=== PATIENT | male | born 1960 | race Caucasian/White ===

== ENCOUNTER → 2019-02-20 | Outpatient (CLI) | payer MEDICARE, MEDICAID ==
--- NOTE | 2019-02-20 17:33 | RAD ---
EXAM: XR Abdomen, 1 View CLINICAL HISTORY: SUPERFICIAL FOREIGN BODY TECHNIQUE: Frontal supine view of the abdomen/pelvis. COMPARISON: No relevant prior studies available. FINDINGS: Limitations: None. Gastrointestinal tract: Unremarkable. No dilation. Bones/joints: Unremarkable. Soft tissues: No radiopaque foreign body noted. IMPRESSION: No radiopaque foreign body noted. Electronically signed by: Alexandria Toscano MD 02/20/2019 5:32 PM CDT
== END ==
LOC: RAD 17:03
PROVIDERS: ATTEND Nurse Practitioner Family
DX: S30.851A Superficial foreign body of abdominal wall, initial encounter (principal)

== ENCOUNTER 2019-06-10 11:00 | Emergency (ER) | payer MEDICARE, MEDICAID ==
[2019-06-10 11:17] VITALS: O2SAT 98
--- NOTE | 2019-06-10 11:20 | ED.PDOC ---
History of Present Illness - General Chief Complaint: Lower Extremity Injury Stated Complaint: left hip and leg pain Time Seen by Provider: 06/10/19 11:09 Source: patient Exam Limitations: no limitations Additional Information: 58yo M with history of chronic back pain now with LLE pain x 3 days. Reports worse after moved heavy mattress, and started only when moving. Denies back pain, fever, saddle anesthesia, numbness/tingling, inability to ambulate, or other symptoms. - History of Present Illness Allergies/Adverse Reactions: Allergies NO KNOWN ALLERGY Allergy (Unverified 10/29/14 13:02) Home Medications: Ambulatory Orders Metformin HCl [Metformin Hydrochloride] 1,000 mg PO BID 10/29/14 Losartan Potassium & Hydrochlo [Losartan Potassium/Hydroc 100-25 mg] 1 tab PO DAILY 06/10/19 Methocarbamol 500 mg PO Q8HR PRN #20 tab 06/10/19 Naproxen [EC-Naproxen] 500 mg PO Q12HR PRN #20 tab 06/10/19 Paroxetine HCl 30 mg PO DAILY 06/10/19 Review of Systems - Review of Systems Constitutional: States: no symptoms reported EENTM: States: no symptoms reported Respiratory: States: no symptoms reported Cardiology: States: no symptoms reported Gastrointestinal/Abdominal: States: no symptoms reported Genitourinary: States: no symptoms reported Musculoskeletal: States: joint pain, muscle pain Neurological: States: no symptoms reported Past Medical History (General) - Patient Medical History Hx Stroke: No Hx Congestive Heart Failure: No Hx Hypertension: Yes Hx Diabetes: Yes Hx Cancer: No - Vaccination History Hx Influenza Vaccination: No - Social History Hx Tobacco Use: No Hx Alcohol Use: Yes Family Medical History - Family History Father Family History: Unknown Living Status: Unknown Physical Exam - Physical Exam General Appearance: Alert, Comfortable, No apparent distress Eyes, Ears, Nose, Throat: PERRL/EOMI Neck: non-tender, full range of motion Cardiovascular/Respiratory: regular rate, rhythm, no M/R/G, normal peripheral pulses Gastrointestinal/Abdominal: non-tender Back: normal inspection, no CVA tenderness Neuro/Tendon: normal sensation, normal motor functions Mental Status: alert Skin: normal color, warm/dry Progress - Progress Progress: 06/10/19 12:17 Well-appearing, afebrile, neurovascularly intact. Does not appear septic joint, fracture, or dislocation. No reported pathology. No reported back pain at this time, but denies numbness, saddle anesthesia, incontinence/retention. Does not appear acute compressive spinal pathology. Ambulatory. Possible crystal arthropathy, OA, or RA. Ambulatory. Does not appear acutely dangerous musculoskeletal pathology at this time. ED warnings given, and outpatient f/u with PCP. 06/10/19 12:23 Farhat Arias MD #[id number] Departure - Departure Clinical Impression: Leg pain, left, Arthralgia Time of Disposition: 12:19 Disposition: Discharge to Home or Self Care Condition: Good Departure Forms: ED Discharge - Pt. Copy, Patient Portal Self Enrollment Instructions: DI for Leg Pain Referrals: VIPIN GARCIA IV DIRECTOR TRANSLATION [Primary Care Provider] - 1-2 Weeks Prescriptions: Methocarbamol 500 mg PO Q8HR PRN #20 tab PRN Reason: muscle pain Naproxen [EC-Naproxen] 500 mg PO Q12HR PRN #20 tab PRN Reason: Pain Home Medications: Ambulatory Orders Metformin HCl [Metformin Hydrochloride] 1,000 mg PO BID 10/29/14 Losartan Potassium & Hydrochlo [Losartan Potassium/Hydroc 100-25 mg] 1 tab PO DAILY 06/10/19 Methocarbamol 500 mg PO Q8HR PRN #20 tab 06/10/19 Naproxen [EC-Naproxen] 500 mg PO Q12HR PRN #20 tab 06/10/19 Paroxetine HCl 30 mg PO DAILY 06/10/19 Additional Instructions: You were seen in the [facility] Emergency Department today. Please fill and take the medications as prescribed (if any) and if you were prescribed antibiotics, please complete the full course. You will need further evaluation on an out patient basis. You must follow up with the listed locations and within the time frames indicated in your discharge paperwork (including your PCP in 3-5 days). Failure to follow up with any studies or doctor visits within the timeframe mentioned could result in poor outcome. Your examination today in the ED did not reveal a new or old problem that required immediate surgery or admission to the hospital. However, you should return to the ED if you are not improving as instructed (especially within the first 6 to 24 hours). This may include things such as uncontrolled vomiting, shortness of breath, fever, bleeding, or severe pain in a body part. You should return for any new or worsening emergency symptoms such as chest pain, severe headache, confusion, or severe abdominal pain. Finally, return to the emergency department if you have any concerns not mentioned above that are concerning to you or if you are unable to follow up as instructed above. Thank you for coming to [facility]. It was our pleasure to serve you today and we thank you for your visit.
[2019-06-10] MEDS ORDERED: ACETAMINOPHEN W/COD #3 TAB 1 EA TAB PO ONE (11:26)
--- NOTE | 2019-06-10 12:06 | RAD ---
EXAM: Knee,Left Complete Left Knee three views HISTORY: Pain COMPARISON: Left knee three views 12/12/2015 TECHNIQUE: Left knee three views-AP, lateral, patellar sunrise FINDINGS: No fracture or dislocation. Diffuse decreased bone density. No significant sclerotic/lytic bone lesion. Mild joint space narrowing at medial and lateral femorotibial compartments. Vascular calcifications in distal medial left thigh. IMPRESSION: 1. Osteopenia. 2. Mild joint space narrowing at left knee's medial and lateral femorotibial compartments. Electronically signed by: Akin Manriquez MD 06/10/2019 12:04 PM [facility]
--- NOTE | 2019-06-10 12:09 | RAD ---
EXAM: Pelvis 1 View HISTORY: Pain COMPARISON: Pelvis one view 12/12/2015 TECHNIQUE: Pelvis one view AP FINDINGS: No acute fracture or dislocation. Mild expansile irregularity of left superior pubis reidentified. No significant hip joint space narrowing. Osteopenia. Multiple small round left inferior pelvic calcifications likely represent phleboliths. IMPRESSION: 1. No radiographic evidence of acute pelvic fracture. 2. Mild expansile irregularity of left superior pubis reidentified. This may represent old healed fracture. 3. Osteopenia. Electronically signed by: Akin Manriquez MD 06/10/2019 12:07 PM [facility]
--- NOTE | 2019-06-10 12:11 | RAD ---
EXAM DESCRIPTION: Femur,Left CLINICAL HISTORY: 58 years Male, pain COMPARISON: 12/12/2015. FINDINGS: Four views of the left femur demonstrate no acute displaced fracture or dislocation. No focal bony erosion or aggressive periosteal reaction seen. No suspicious sclerotic or lytic lesion. No radiopaque retained foreign body. Mild atherosclerotic vascular calcifications. IMPRESSION: No acute osseous abnormality. Electronically signed by: Shimon Reed DO 06/10/2019 12:10 PM [facility]
[2019-06-10 12:32] VITALS: BP 127/86; TEMP 96.4
== END 2019-06-10 12:31 | disposition home or self-care (01) ==
LOC: ER 11:00
DX: M79.605 Pain in left leg (principal); M25.552 Pain in left hip; G89.29 Other chronic pain; I10 Essential (primary) hypertension; E11.9 Type 2 diabetes mellitus without complications; Z79.84 Long term (current) use of oral hypoglycemic drugs; Z79.899 Other long term (current) drug therapy

== ENCOUNTER 2019-06-12 06:18 | Emergency (ER) | payer MEDICARE, MEDICAID ==
[2019-06-12 06:31] VITALS: BP 144/85; TEMP 96.7; O2SAT 99
[2019-06-12] MEDS ORDERED: KETOROLAC TROMETHAMINE INJ 30 MG/ML VIAL IM ONE (06:31)
--- NOTE | 2019-06-12 06:34 | ED.PDOC ---
History of Present Illness - General Chief Complaint: General Stated Complaint: L hip discomfort Time Seen by Provider: 06/12/19 06:29 - History of Present Illness Initial Comments: 58-year-old male returns to the ER 48 hours after previous eval here in the ER, for persisting left hip pain, which is aching, radiates along the buttock and down outside of his left leg. Denies any new trauma. Has not filled the medications previously provided. similar to previous episodes. no f/c, weakness. Allergies/Adverse Reactions: Allergies NO KNOWN ALLERGY Allergy (Unverified 06/12/19 06:30) Home Medications: Ambulatory Orders Metformin HCl [Metformin Hydrochloride] 1,000 mg PO BID 10/29/14 Losartan Potassium & Hydrochlo [Losartan Potassium/Hydroc 100-25 mg] 1 tab PO DAILY 06/10/19 Methocarbamol 500 mg PO Q8HR PRN #20 tab 06/10/19 Naproxen [EC-Naproxen] 500 mg PO Q12HR PRN #20 tab 06/10/19 Paroxetine HCl 30 mg PO DAILY 06/10/19 Tramadol HCl [Ultram] 50 mg PO Q6H PRN #10 tab 06/12/19 Review of Systems - Review of Systems Review of Systems: 06/12/19 06:33 General: Denies generalized weakness, fever, arthralgia/myalgia HEENT: Denies sore throat, rhinorrhea Cardiovascular: Denies chest pain, palpitations Respiratory: Denies SOB, cough Gastrointestinal: Denies abdominal pain, vomiting, diarrhea : Denies dysuria, frequency Musculoskeletal: has extremity pain, as in HPI, no extremity swelling Integument: Denies rash, itching Neuro: Denies focal weakness or numbness Psych: Denies depression, hallucinations. Past Medical History (General) - Patient Medical History Hx Stroke: No Hx Congestive Heart Failure: No Hx Hypertension: Yes Hx Diabetes: Yes Hx Cancer: No Hx MRSA: No - Vaccination History Hx Influenza Vaccination: No Hx Pneumococcal Vaccination: No - Social History Hx Tobacco Use: Yes Hx Alcohol Use: Yes Family Medical History - Family History Father Family History: Unknown Living Status: Unknown Physical Exam - Physical Exam Comments: General Appearance: Patient is awake and alert. Skin: Warm and dry. No diaphoresis. No rash or other lesions. Head: Normocephalic/atraumatic. Eyes: PERRL, lids, conjunctiva and sclera unremarkable. EOMI intact. ENT: No nasal discharge. Oropharynx. Without erythema, exudate, lesions. Moist mucous membranes. Neck: Supple. No LAD. No tenderness. No JVD noted. Respiratory: Normal rate and effort. Breath sounds clear bilaterally. Cardiovascular: Regular rate. Heart sounds normal. No murmur. GI: Abdomen soft, non-distended and non-tender. No rebound/guarding. Bowel sounds normal. Back: No tenderness Musculoskeletal: Extremities- Normal range of motion. No effusion, cyanosis, edema. has minimal discomfort w/ full ROM in L hip, no signif worsening w int rotation.NV intact. Neurological: Alert. No facial palsy. Speech clear. Gag intact. No motor deficit, str symmetric. No sensory deficit. Progress - Results/Orders Results/Orders: previous x-rays reviewed, which are largely normal. Eye exam remains reassuring here. Lengthy discussion on trial of previously prescribed medications, use of pain medicines prescribed here today, need for close follow-up with his primary care physician Dr. Diaz. Departure - Departure Clinical Impression: Lateral pain of hip Time of Disposition: 06:45 Disposition: Discharge to Home or Self Care Condition: Good Departure Forms: ED Discharge - Pt. Copy, Patient Portal Self Enrollment Instructions: Hip Pain (DC), Sciatica Exercises Diet: resume usual diet Activity: increase activity as tolerated Referrals: VIPIN DIAZ IV LIME KILN WORKER [Primary Care Provider] - 1-2 Days Prescriptions: Tramadol HCl [Ultram] 50 mg PO Q6H PRN #10 tab PRN Reason: Pain Home Medications: Ambulatory Orders Metformin HCl [Metformin Hydrochloride] 1,000 mg PO BID 10/29/14 Losartan Potassium & Hydrochlo [Losartan Potassium/Hydroc 100-25 mg] 1 tab PO DAILY 06/10/19 Methocarbamol 500 mg PO Q8HR PRN #20 tab 06/10/19 Naproxen [EC-Naproxen] 500 mg PO Q12HR PRN #20 tab 06/10/19 Paroxetine HCl 30 mg PO DAILY 06/10/19 Tramadol HCl [Ultram] 50 mg PO Q6H PRN #10 tab 06/12/19
== END 2019-06-12 06:45 | disposition home or self-care (01) ==
LOC: ER 06:18
DX: M25.552 Pain in left hip (principal); I10 Essential (primary) hypertension; E11.9 Type 2 diabetes mellitus without complications; Z87.891 Personal history of nicotine dependence; Z79.84 Long term (current) use of oral hypoglycemic drugs; Z79.899 Other long term (current) drug therapy

== ENCOUNTER 2019-06-26 18:36 | Emergency (ER) | payer MEDICARE, MEDICAID ==
[2019-06-26] MEDS ORDERED: KETOROLAC TROMETHAMINE INJ 30 MG/ML VIAL IV ONE (18:53)
[2019-06-26 18:58] VITALS: TEMP 98.1
--- NOTE | 2019-06-26 19:08 | ED.PDOC ---
History of Present Illness - General Chief Complaint: Diabetic Complaint Stated Complaint: Elevated blood sugars Time Seen by Provider: 06/26/19 18:39 Exam Limitations: no limitations - History of Present Illness Initial Comments: 58-year-old male presents to the emergency department with his significant other complaining of elevated blood sugar. He reports over the last 5 days his blood sugar has been elevated. He has been having problems with left hip and knee pain for the past several weeks and he went to his primary care physician last week and they told him if he could get his blood sugars under control he would give him some steroids so he has been checking the sugars more regularly and there remaining elevated. He reports he has been watching his diet and taking his metformin 1000 mg twice daily as directed. He denies any recent cough, congestion, fever, nausea or vomiting. He has a history of previous injuries to the left hip and back but denies anything currently. He has been taking tramadol with improvement in his pain. He reports intermittent lightheadedness but denies any chest pain or shortness of breath. Symptoms are currently moderate in severity and nothing he has done seems to make them significantly better or worse. Allergies/Adverse Reactions: Allergies NO KNOWN ALLERGY Allergy (Unverified 06/12/19 06:30) Home Medications: Ambulatory Orders Metformin HCl [Metformin Hydrochloride] 1,000 mg PO BID 10/29/14 Losartan Potassium & Hydrochlo [Losartan Potassium/Hydroc 100-25 mg] 1 tab PO DAILY 06/10/19 Paroxetine HCl 30 mg PO DAILY 06/10/19 Acetaminophen W/ Codeine [Tylenol W/ CODEINE #3] 1 ea PO Q8H PRN #15 06/26/19 Cyclobenzaprine HCl [Cyclobenzaprine Hydrochlo] 10 mg PO Q8HRS PRN 06/26/19 Gabapentin 300 mg PO DAILY 06/26/19 Ibuprofen 800 mg PO BID 06/26/19 Review of Systems - Review of Systems Constitutional: States: weakness. Denies: chills, fever EENTM: Denies: nose congestion, throat pain Respiratory: Denies: cough, short of breath Cardiology: Denies: chest pain, palpitations Gastrointestinal/Abdominal: Denies: abdominal pain, diarrhea, nausea, vomiting Genitourinary: Denies: dysuria, hematuria - L hip and knee Musculoskeletal: States: back pain - L lumbar back, joint pain, muscle pain - l leg Skin: Denies: lesions, rash Neurological: Denies: headache, numbness, weakness Past Medical History (General) - Patient Medical History Hx Stroke: No Hx Congestive Heart Failure: No Hx Hypertension: Yes Hx Diabetes: Yes Hx Cancer: No Hx MRSA: No - Vaccination History Hx Influenza Vaccination: No Hx Pneumococcal Vaccination: No - Social History Hx Tobacco Use: No Hx Alcohol Use: No Family Medical History - Family History Father Family History: Unknown Living Status: Unknown Physical Exam - Physical Exam General Appearance: Alert, No apparent distress, Well Developed, Well Nourished Eye Exam: bilateral normal Ears, Nose, Throat: normal ENT inspection, normal pharynx Neck: supple, normal inspection Respiratory: lungs clear, normal breath sounds, no respiratory distress, no accessory muscle use Cardiovascular/Chest: normal peripheral pulses, no edema, tachycardia Peripheral Pulses: radial,right: 2+, radial,left: 2+, dorsalis pedis,right: 2+, dorsalis pedis,left: 2+ Gastrointestinal/Abdominal: non tender, soft, no organomegaly Back Exam: normal inspection, muscle spasm - L lumbar Extremity: other - TTP L hip and knee with painful ROM. Neurologic: gypsum block setter II-XII nml as tested, no motor/sensory deficits, alert, normal mood/affect, oriented x 3 Skin Exam: normal color, warm/dry Comments: Vital Signs - 24 hr 06/26/19 18:49 Temperature 98.1 F Pulse Rate [ 112 H Left Radial] Respiratory 20 Rate Blood Pressure 104/80 [Left Arm] O2 Sat by Pulse 96 Oximetry Progress - Progress Progress: 06/26/19 19:11 Previous record review the patient was seen on 06/10/19 and 05/3019 for left back, hip and knee pain. He had x-rays done of the pelvis, femur and knee which were negative except for arthritic changes. He was discharged home with a prescription for tramadol. 06/26/19 20:10 Pt recheck: all lab ad imaging results so far discussed. We discussed still waiting on UA and will give IVF and recheck glucose. We discussed that up until the last few days the pt had not been monitoring his blood sugar regularly at all and that it has likely been elevated for some time. At this time I do not see findings concerning for DKA and we discussed the more important thing ad terminal makeup operator will be discussing potential changes in his regular diabetic medications with his PCP. Pt and have both voiced understanding and agree with plan. 06/26/19 21:13 Patient recheck: Fingerstick glucose after IV fluids was 295. I discussed with the patient plan for discharge home along with a prescription for pain medication. He was instructed to call his primary care physician tomorrow to schedule an appointment as soon as possible to discuss changes to his diabetic medications. He was given discharge instructions including diabetic diet recommendations. He is also given a referral for Dr. Diaz for orthopedic surgery to follow up about the left hip pain. He was encouraged to take all medications as directed and to follow up as soon as possible. The patient and his at the bedside have voice understanding and agree with the treatment plan and all questions and concerns up and address. - Results/Orders Results/Orders: 06/26/19 18:52 IV Care:Saline Lock per Protoc QSHIFT Telemetry ONCE Laboratory Results - last 24 hr 06/26/19 06/26/19 06/26/19 19:05 19:05 19:10 WBC 14.0 H RBC 6.24 H Hgb 17.4 Hct 52.1 H MCV 83.6 MCH 27.9 MCHC 33.4 RDW 13.4 Plt Count 238 MPV 9.1 Absolute Neuts (auto) 7.40 H Absolute Lymphs (auto) 5.10 H Absolute Monos (auto) 1.10 H Absolute Eos (auto) 0.20 Absolute Basos (auto) 0.10 Neutrophils % 53.2 Lymphocytes % 36.6 Monocytes % 7.9 Eosinophils % 1.4 Basophils % 0.9 ESR 10 Sodium 130 L Potassium 4.3 Chloride 88 L Carbon Dioxide 27 Anion Gap 19.3 H BUN 33 H Creatinine 1.31 H BUN/Creatinine Ratio 25.2 H Random Glucose 417 H* Serum Osmolality 285.4 Calcium 10.7 H Total Bilirubin 0.8 AST 20 ALT 21 Alkaline Phosphatase 53 C-Reactive Protein Serum Total Protein 8.0 Albumin 4.4 Globulin 3.6 H Albumin/Globulin Ratio 1.2 Urine Color Urine Appearance Urine pH Ur Specific [place] Urine Protein Urine Glucose (UA) Urine Ketones Urine Blood Urine Nitrite Urine Bilirubin Urine Urobilinogen Ur Leukocyte Esterase Urine RBC Urine WBC Ur Epithelial Cells Urine Bacteria Hyaline Casts Urine Mucus 06/26/19 06/26/19 19:10 19:56 WBC RBC Hgb Hct MCV MCH MCHC RDW Plt Count MPV Absolute Neuts (auto) Absolute Lymphs (auto) Absolute Monos (auto) Absolute Eos (auto) Absolute Basos (auto) Neutrophils % Lymphocytes % Monocytes % Eosinophils % Basophils % ESR Sodium Potassium Chloride Carbon Dioxide Anion Gap BUN Creatinine BUN/Creatinine Ratio Random Glucose Serum Osmolality Calcium Total Bilirubin AST ALT Alkaline Phosphatase C-Reactive Protein 1.1 H Serum Total Protein Albumin Globulin Albumin/Globulin Ratio Urine Color Yellow Urine Appearance Clear Urine pH 5.0 Ur Specific [place] 1.015 Urine Protein 30 Urine Glucose (UA) >=1000 H Urine Ketones Trace Urine Blood Trace-intact H Urine Nitrite Negative Urine Bilirubin Small H Urine Urobilinogen 0.2 Ur Leukocyte Esterase Negative Urine RBC 0 Urine WBC 0-1 Ur Epithelial Cells 0-1 Urine Bacteria Rare Hyaline Casts 1-3 Urine Mucus Trace 2 View CXR: IMPRESSION: No abnormality noted. Electronically signed by: Alexandria Toscano MD 06/26/2019 7:55 PM [employer] Departure - Departure Clinical Impression: Hyperglycemia, Leg pain, left Time of Disposition: 21:13 Disposition: Discharge to Home or Self Care Condition: Fair Departure Forms: ED Discharge - Pt. Copy, Patient Portal Self Enrollment Instructions: DI for Diabetes Type 2, Osteoarthritis, Diabetes Diet Referrals: VIPIN GARCIA IV, NP [Primary Care Provider] - 1-2 Days Ariel Diaz MD [Active Staff] - 1-2 Weeks Prescriptions: Acetaminophen W/ Codeine [Tylenol W/ CODEINE #3] 1 ea PO Q8H PRN #15 PRN Reason: Pain Home Medications: Ambulatory Orders Metformin HCl [Metformin Hydrochloride] 1,000 mg PO BID 10/29/14 Losartan Potassium & Hydrochlo [Losartan Potassium/Hydroc 100-25 mg] 1 tab PO DAILY 06/10/19 Paroxetine HCl 30 mg PO DAILY 06/10/19 Acetaminophen W/ Codeine [Tylenol W/ CODEINE #3] 1 ea PO Q8H PRN #15 06/26/19 Cyclobenzaprine HCl [Cyclobenzaprine Hydrochlo] 10 mg PO Q8HRS PRN 06/26/19 Gabapentin 300 mg PO DAILY 06/26/19 Ibuprofen 800 mg PO BID 06/26/19 Additional Instructions: Take pain medication as needed. Call your primary care physician tomorrow to schedule follow-up appointment as soon as possible to discuss changes and diabetic medications. Call Dr. Diaz for orthopedic surgery to schedule follow-up appointment about left hip and knee pain. Return to the emergency department immediately for any worsening of symptoms or other concerns.
[2019-06-26] MEDS ORDERED: SODIUM CHLORIDE 0.9% 1000ML 1,000 ML IVS ONE (19:51)
--- NOTE | 2019-06-26 19:56 | RAD ---
EXAM: XR Chest, 2 Views CLINICAL HISTORY: dizziness, elevated blood sugar TECHNIQUE: Frontal and lateral views of the chest. COMPARISON: No relevant prior studies available. FINDINGS: Lungs: Unremarkable. No consolidation. Pleural space: Unremarkable. No pneumothorax. Heart: Unremarkable. No cardiomegaly. Mediastinum: Unremarkable. Bones/joints: Unremarkable. IMPRESSION: No abnormality noted. Electronically signed by: Alexandria Toscano MD 06/26/2019 7:[address] [employer]
[2019-06-26 21:06] VITALS: O2SAT 96
[2019-06-26 21:16] VITALS: BP 120/80
== END 2019-06-26 21:20 | disposition home or self-care (01) ==
LOC: ER 18:36
DX: E11.65 Type 2 diabetes mellitus with hyperglycemia (principal); M25.552 Pain in left hip; M25.562 Pain in left knee; R42 Dizziness and giddiness; M54.5 Low back pain; I10 Essential (primary) hypertension; Z79.84 Long term (current) use of oral hypoglycemic drugs; Z79.899 Other long term (current) drug therapy; Z87.828 Personal history of other (healed) physical injury and trauma
CPT/HCPCS: 36415; 36416; 71046; 80053; 81001; 82948; 85025; 85651; 86140; J1885; J7030

== ENCOUNTER → 2019-07-03 | Outpatient (CLI) | payer MEDICARE, MEDICAID ==
--- NOTE | 2019-07-04 09:44 | MRI ---
EXAM DESCRIPTION: Lumbar Spine w/o Contrast : Magnetic Resonance Imaging. CLINICAL HISTORY: RADICULOPATHY LUMBAR REGION COMPARISON: MRI scan lumbar spine noncontrast September 2010. TECHNIQUE: Multiplanar, multiple standard sequences, non contrast MRI, lumbar spine. FINDINGS: L5-S1: The disc is well visualized on axial T2 series 501, image 3. Minimal disc desiccation and posterior left focal 5 mm bulge or protrusion abutting the descending left S1 nerve. Minimal disc space loss. Posterior elements: Facet joints and posterior flavum ligament, are unremarkable. Bilateral shortened pedicles. AP canal diameter 9.5 mm. 4 mm bulge into the right foramen abutting the exiting right L5 nerve. Narrowing of the right subarticular recess. Moderate right foraminal narrowing. Mild left foraminal narrowing. L4-L5: Minimal disc desiccation with disc space maintained. Asymmetric disc bulge or small protrusion into the base of the left foramen abutting the exiting left L4 nerve. Moderate narrowing. Bilaterally shortened pedicles. Hypertrophy of the flavum ligaments. AP canal diameter 9.5 mm. Mild right foraminal narrowing. L3-L4: Minimal disc desiccation with disc space preserved. No posterior bulging. Mild posterior degenerative hypertrophy of the posterior elements. Bilaterally shortened pedicles. AP canal diameter 9 mm. Mild bilateral foraminal narrowing. L2-L3: Disc space preserved with minimal disc desiccation. No posterior bulging. Mild bilateral degenerative hypertrophy of the posterior elements. Bilateral pedicle shortening. AP canal diameter 10 mm. L1-L2: Normal signal in the disc with disc space preserved. Minimal thickening of the flavum ligaments. Bilaterally shortened pedicles. Moderate canal narrowing. Bilateral foramina are patent. T12-L1: Normal signal in the disc with disc space preserved. Posterior elements unremarkable. Canal and foramina are patent. Conus terminates at this level. No scoliosis. Paravertebral soft tissues minimal paravertebral muscle atrophy.. Distal cord normal signal and caliber. Normal marrow signal in the remaining vertebral bodies and the posterior elements. Vertebral bodies are not compressed at any level. IMPRESSION: 1. Narrowing of the canal at multiple levels primarily due to bilaterally shortened pedicles. Degenerative facet hypertrophic joints and ligaments at several levels. 2. Left paramedian L5-S1 disc protrusion or focal bulge abutting the descending left S1 nerve. New since the prior study. Intraforaminal right disc bulge abutting the exiting right L5 nerve. Stable since the prior study. Mild central canal stenosis unchanged. 3. Asymmetric L4-L5 disc bulge into the left foramen abutting the exiting left L4 nerve. Multifactorial mild central canal stenosis. Stable since the prior study. 4. Multifactorial mild central canal stenosis at L3-L4 and borderline mild central canal stenosis at L2-L3. No significant disc bulging at any level. No change from the prior study. Electronically signed by: Jonathan Enrique MD 07/04/2019 9:43 AM [facility]
== END ==
LOC: CT 13:02
PROVIDERS: ATTEND Nurse Practitioner Family
DX: M54.16 Radiculopathy, lumbar region (principal); M48.061 Spinal stenosis, lumbar region without neurogenic claudication; M51.86 Other intervertebral disc disorders, lumbar region; M51.87 Other intervertebral disc disorders, lumbosacral region

== ENCOUNTER → 2019-08-04 | Outpatient (CLI) | payer MEDICARE, MEDICAID ==
--- NOTE | 2019-08-06 13:22 | RAD ---
EXAM DESCRIPTION: Knee,Left Complete CLINICAL HISTORY: PAIN IN RIGHT KNEE COMPARISON: None FINDINGS: 3 views left knee. No fracture, dislocation or aggressive bone lesion is present. Bone mineralization is normal. No erosions are seen. No gross soft tissue abnormality. Atherosclerotic disease is noted. IMPRESSION: No acute bone pathology. No advanced osteoarthritis. Electronically signed by: Jonathan Flores MD 08/06/2019 1:20 PM [facility]
== END ==
LOC: RAD 11:33
PROVIDERS: ATTEND Nurse Practitioner Family
DX: M25.569 Pain in unspecified knee (principal)

== ENCOUNTER → 2019-08-24 | Outpatient (CLI) | payer MEDICARE, MEDICAID ==
--- NOTE | 2019-08-24 13:25 | RAD ---
EXAM DESCRIPTION: Pelvis CLINICAL HISTORY: HIP PAIN COMPARISON: None. TECHNIQUE: 10 June 2019 FINDINGS: Mild deformity of the left side of the pubic symphysis is observed suggesting prior fracturing. No acute fracture is seen. Mild acetabular osteophyte formation is observed. Phleboliths are observed in the left side the pelvis. IMPRESSION: Mild degenerative changes are observed in both hips. Electronically signed by: Elmo Baer MD 08/24/2019 1:23 PM CDT
--- NOTE | 2019-08-24 13:26 | RAD ---
EXAM DESCRIPTION: Knee,Left Complete CLINICAL HISTORY: KNEE PAIN COMPARISON: 04 August 2019 TECHNIQUE: 4 views left FINDINGS: Minimal loss of medial joint space is observed. No fracturing is detected. No joint effusion is seen. IMPRESSION: Minimal loss of medial joint space is observed. The knee is otherwise unremarkable. Electronically signed by: Elmo Baer MD 08/24/2019 1:25 PM CDT
== END ==
LOC: RAD 07:50
PROVIDERS: ATTEND Orthopaedic Surgery
DX: M16.0 Bilateral primary osteoarthritis of hip (principal); M25.862 Other specified joint disorders, left knee

== ENCOUNTER → 2020-04-17 | Outpatient (CLI) | payer MEDICARE, MEDICAID ==
--- NOTE | 2020-04-18 13:41 | US ---
EXAM DESCRIPTION: Venous,Lower Extremity RT: ULTRASOUND. CLINICAL HISTORY: PAIN IN UNSPEC. LIMB COMPARISON: None Available. TECHNIQUE: Barnett-scale and doppler sonographic evaluation of the deep venous system of the right lower extremity. FINDINGS: Doppler evaluation shows normal color flow and normal phasicity and augmentation of the right common femoral vein, right femoral vein, popliteal vein, right greater saphenous vein, junction with the CFV. Also normal color flow and normal phasicity and augmentation of the peroneal, and posterior tibial vein. The right lower extremity deep veins were completely compressible; normal occlusion with transducer pressure. Barnett-scale survey showed no echogenic thrombus within these veins. IMPRESSION: 1. Duplex ultrasound evaluation of the right lower extremity deep venous system showing no evidence of thrombosis. Electronically signed by: Jonathan Enrique MD 04/18/2020 1:39 PM [facility]
== END ==
LOC: LAB 10:19
PROVIDERS: ATTEND Nurse Practitioner Family
DX: M79.604 Pain in right leg (principal)

== ENCOUNTER → 2020-04-22 | Outpatient (CLI) | payer MEDICARE, MEDICAID ==
--- NOTE | 2020-04-25 14:52 | RAD ---
EXAM: Foot,Right 2 Views INDICATION: 59 years Male, PAIN IN RIGHT LEG COMPARISON: None available FINDINGS: 2 views of the right foot were performed. No fracture or dislocation. No destructive osseous lesion. Mild to moderate scattered degenerative changes in the foot, primarily in the midfoot and toes. Tiny plantar calcaneal spur and Achilles tendon insertion enthesophyte. IMPRESSION: [id number] degenerative change in the right foot without fracture or dislocation. Electronically signed by: Meghan Sloan MD 04/25/2020 2:51 PM [facility]
--- NOTE | 2020-04-25 14:54 | RAD ---
EXAM DESCRIPTION: Tibia/Fibula,Right CLINICAL HISTORY: 59 years Male, PAIN IN RIGHT LEG COMPARISON: None. FINDINGS: X-ray 2 view right tib-fib. No bone, joint, soft tissue abnormality. IMPRESSION: Negative Electronically signed by: Andi Natarajan MD 04/25/2020 2:52 PM [facility]
== END ==
LOC: RAD 10:52
PROVIDERS: ATTEND Nurse Practitioner Family
DX: M19.071 Primary osteoarthritis, right ankle and foot (principal); M79.604 Pain in right leg

== ENCOUNTER → 2020-05-20 | Outpatient (CLI) | payer MEDICARE, MEDICAID ==
--- NOTE | 2020-05-20 12:53 | RAD ---
Study: 6 Views of the Right Foot and Right Ankle. Indication: PAIN Comparison: April 22, 2020 Findings: Mild spurring inferior margin medial malleolus and lateral malleolus. No acute fracture or malalignment of the right foot or ankle. Calcaneal spurring at the Achilles tendon insertion and plantar fascia origin. 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 Mild overlying bunion formation adjacent to the first MTP joint. Electronically signed by: Dennis Scott MD 05/20/2020 12:51 PM [facility]
== END ==
LOC: RAD 08:46
PROVIDERS: ATTEND Orthopaedic Surgery
DX: M19.071 Primary osteoarthritis, right ankle and foot (principal); M77.31 Calcaneal spur, right foot; M25.771 Osteophyte, right ankle; M21.611 Bunion of right foot